=== PATIENT | male | born 1970 | race Caucasian/White ===

== ENCOUNTER 2017-06-05 11:24 | Inpatient (IN) | payer MEDICAID ==
[~2017-06-05] VITALS: Ht 175.3 cm; Wt 61.0 kg
[2017-06-05 12:02] LABS: PLATELET COUNT 339 x10^3mcL (130-400); RED CELL DISTRIBUTION WIDTH 14.4 % (11.5-14.5)
[2017-06-05 12:11] LABS: microscopic required? YES; urine erythrocyte TRACE (NEGATIVE)
[2017-06-05 12:24] LABS: ALKALINE PHOSPHATASE 199 U/L (46-116); ALT/SGPT 190 U/L (16-63); AST/SGOT 553 U/L (15-37); BILIRUBIN TOTAL 0.4 mg/dL (0.20-1.00); CALCIUM 7.4 mg/dL (8.5-10.1); CHLORIDE SERUM 90 mmol/L (98-107); CREATININE SERUM 3.2 mg/dL (0.7-1.3); GFR1 23 mL/min
[2017-06-05 12:27] LABS: AMPHETAMINE QUAL UR NONE DETECTED (NEG <=1000)
[2017-06-05 12:59] LABS: ALBUMIN 2.7 g/dL (3.4-5.0); TOTAL PROTEIN, SERUM 6.1 g/dL (6.4-8.2)
[2017-06-05 13:00] LABS: CARBON DIOXIDE 2.6 mmol/L (21-32); SODIUM SERUM 122 mmol/L (136-145)
[2017-06-05 13:01] LABS: GLUCOSE SERUM 1036 mg/dL (74-106)
[2017-06-05 14:09] LABS: CALCIUM 6.9 mg/dL (8.5-10.1); CREATININE SERUM 2.9 mg/dL (0.7-1.3)
[2017-06-05 14:26] LABS: POTASSIUM SERUM 6.7 mmol/L (3.5-5.1)
[2017-06-05 14:27] LABS: CARBON DIOXIDE 4.5 mmol/L (21-32)
[2017-06-05 14:28] LABS: CHOLESTEROL/HDL RATIO 14.8; MAGNESIUM 2.9 mg/dL (1.8-2.4)
[2017-06-05 14:38] LABS: T3 TOTAL 0.3 ng/mL
[2017-06-05 14:42] LABS: FREE T4 0.62 ng/dL (0.76-1.46)
[2017-06-05 14:48] LABS: FREE THYROXINE INDEX 0.8 ug/dL (1.4-4.5); T4(THYROXINE) 2.3 ug/dL (4.7-13.3)
[2017-06-05 15:16] LABS: IRON 111 ug/dL (65-170)
[2017-06-05 15:19] LABS: TOTAL IRON BINDING CAPACITY 194 ug/dL (250-450)
[2017-06-05 16:27] LABS: RED BLOOD CELLS 2.53 M/mm3 (4.52-5.90)
[2017-06-05 17:10] VITALS: BP 119/70
[2017-06-05 19:29] LABS: PLATELET COUNT 266 x10^3mcL (130-400); RED CELL DISTRIBUTION WIDTH 13.7 % (11.5-14.5)
[2017-06-05 19:30] VITALS: BP 138/81
[2017-06-05 19:36] LABS: CALCIUM 6.7 mg/dL (8.5-10.1); CREATININE SERUM 2.7 mg/dL (0.7-1.3); MAGNESIUM 2.8 mg/dL (1.8-2.4); POTASSIUM SERUM 5.5 mmol/L (3.5-5.1)
[2017-06-05 19:48] LABS: CARBON DIOXIDE 8.6 mmol/L (21-32)
[2017-06-05 20:15] LABS: BAND NEUTROPHIL 0 % (0-10); BASOPHIL 0 % (0-2); MONOCYTE 2 % (0-7); SEGMENTED NEUTROPHILS 83 % (37-75); rbc morphology (normal/abnorm) ABNORMAL (NORMAL)
[2017-06-05 20:16] LABS: PLATELET MORPHOLOGY PLATELETS NORMAL
[2017-06-05 23:04] VITALS: BP 102/73
[2017-06-06 01:39] LABS: CALCIUM 6.5 mg/dL (8.5-10.1); CARBON DIOXIDE 15.8 mmol/L (21-32); CREATININE SERUM 2.5 mg/dL (0.7-1.3); MAGNESIUM 2.2 mg/dL (1.8-2.4); PHOSPHOROUS 4.3 mg/dL (2.5-4.9); POTASSIUM SERUM 4.5 mmol/L (3.5-5.1)
[2017-06-06 01:52] LABS: BASOPHIL % 0.3 % (0-2); PLATELET COUNT 253 x10^3mcL (130-400); RED CELL DISTRIBUTION WIDTH 12.9 % (11.5-14.5)
[2017-06-06 03:37] VITALS: BP 115/72
[2017-06-06 05:53] LABS: BILIRUBIN DIRECT 0.06 mg/dL (0.0-0.2); BILIRUBIN TOTAL 0.21 mg/dL (0.20-1.00); CALCIUM 6.8 mg/dL (8.5-10.1); CARBON DIOXIDE 17.7 mmol/L (21-32); CREATININE SERUM 2.3 mg/dL (0.7-1.3); MAGNESIUM 2.2 mg/dL (1.8-2.4); PHOSPHOROUS 3.7 mg/dL (2.5-4.9); POTASSIUM SERUM 4.3 mmol/L (3.5-5.1)
[2017-06-06 05:56] LABS: ALBUMIN 2.3 g/dL (3.4-5.0); TOTAL PROTEIN, SERUM 5.1 g/dL (6.4-8.2)
[2017-06-06 08:10] VITALS: BP 96/68
[2017-06-06 09:08] LABS: CALCIUM 6.7 mg/dL (8.5-10.1); CARBON DIOXIDE 19.8 mmol/L (21-32); CREATININE SERUM 2.2 mg/dL (0.7-1.3); MAGNESIUM 2.1 mg/dL (1.8-2.4); PHOSPHOROUS 3.5 mg/dL (2.5-4.9); POTASSIUM SERUM 4.2 mmol/L (3.5-5.1)
[2017-06-06 12:05] VITALS: Ht 175.3 cm; Wt 61.0 kg
[2017-06-06 12:17] VITALS: BP 124/72
[2017-06-06 15:57] VITALS: BP 120/78
[2017-06-06] MEDS ORDERED: ROC1I IV (17:56)
[2017-06-06] MEDS ORDERED: SERTRALINE50 M1 PO (17:56)
[2017-06-06] MEDS ORDERED: HIBICLENS118 ML TOP (17:57)
[2017-06-06] MEDS ORDERED: BACO TOP (17:57)
[2017-06-06] MEDS ORDERED: HUMULIN R100 U/1 M1 SC (17:57)
[2017-06-06] MEDS ORDERED: LAC15L PO (17:57)
[2017-06-06 19:10] VITALS: BP 128/84
[2017-06-06 21:12] VITALS: BP 126/83
== END 2017-06-06 21:04 | disposition short-term general hospital (02) | DRG 720 ==
LOC: ED 11:24 → IC 12:45
PROVIDERS: Emergency Medicine; Family Medicine
PROC: 02HV33Z Insertion of Infusion Device into Superior Vena Cava, Percutaneous Approach (ICD-10-PCS; principal; 2017-06-05)
PROC: B548ZZA Ultrasonography of Superior Vena Cava, Guidance (ICD-10-PCS; 2017-06-05)
DX: A41.9 Sepsis, unspecified organism (principal); N17.0 Acute kidney failure with tubular necrosis; E43 Unspecified severe protein-calorie malnutrition; G93.41 Metabolic encephalopathy; E10.10 Type 1 diabetes mellitus with ketoacidosis without coma; K85.90 Acute pancreatitis without necrosis or infection, unspecified; T68.XXXA Hypothermia, initial encounter; E72.20 Disorder of urea cycle metabolism, unspecified; K72.90 Hepatic failure, unspecified without coma; E86.0 Dehydration; D64.9 Anemia, unspecified; E87.5 Hyperkalemia; E87.1 Hypo-osmolality and hyponatremia; F32.9 Major depressive disorder, single episode, unspecified; E83.51 Hypocalcemia
CPT/HCPCS: 36556; 36600; 82962; 83880; 84439; G0480; J0696; J1642; J1815; J1953; J2060; J2270; J3475; J3490; J7030; Q0092